=== PATIENT | male | born 1945 | race Two or more races ===

== ENCOUNTER 2021-08-28 09:38 | Inpatient (IN) | payer BC, MEDICAID, MEDICARE, OTHER ==
[~2021-08-28] VITALS: Ht 170.2 cm; Wt 94.5 kg
[~2021-08-28 09:38] MED LIST: ALLO100T PO; LISI40TA11; METF-370 PO; SIMV80TA73 PO; TRIA50CA40 PO
[2021-08-28 10:44] LABS: Basophils # (auto) 0.1 10 ^3/uL (0-0.2); Basophils % (auto) 0.4 % (0.0-2.0); Eosinophils # (auto) 0.3 10 ^3/uL (0-0.8); Eosinophils % (auto) 1.7 % (0.0-7.0); Hematocrit 34.9 % (41.0-53.0); Hemoglobin 11.3 g/dL (13.5-17.5); Lymphocytes # (auto) 0.9 10 ^3/uL (0.4-5.4); Lymphocytes % (auto) 6.1 % (10.0-50.0); Mean Corpuscular Hemoglobin 29.7 pg (28.0-32.0); Mean Corpuscular Hgb Conc. 32.4 g/dL (32.0-36.0); Mean Corpuscular Volume 91.7 fL (80.0-100.0); Monocytes # (auto) 0.4 10 ^3/uL (0-1.3); Monocytes % (auto) 2.7 % (0.0-12.0); Neutrophils # (auto) 13.4 10 ^3/uL (1.6-8.6); Neutrophils % (auto) 89.1 % (37.0-80.0); Nucleated Red Blood Cells % 0.1 %; Red Blood Cells 3.81 10^6/uL (4.5-5.90)
[2021-08-28 11:11] LABS: Albumin 1.7 g/dL (3.4-5.0); Calcium 9.1 mg/dL (8.5-10.1)
[2021-08-28 11:16] LABS: BUN/Creatinine Ratio 25.3; Bilirubin, Total 0.5 mg/dL (0.2-1.0); Total Protein 5.4 g/dL (6.4-8.2)
[2021-08-28] MEDS: SODIUM CHLORIDE 0.9% 500 ML IV ONE (11:31)
[2021-08-28] MEDS ORDERED: IOHEXOL 350 MG/ML 100ML IJ ONE ×2 (12:18→12:53)
[2021-08-28] MEDS ORDERED: ONDANSETRON HCL 4 MG/2 ML VIAL IV PRN (13:30)
[2021-08-28] MEDS ORDERED: ALBUTEROL SULF HFA 90MCG INH 200DOSE IN PRN (13:30)
[2021-08-28] MEDS ORDERED: DOCUSATE SOD 100 MG CAP PO PRN (13:30)
[2021-08-28] MEDS ORDERED: HYDROcodone-ACET 5/325MG TAB PO PRN (13:30)
[2021-08-28] MEDS ORDERED: ACETAMINOPHEN 500 MG TAB PO PRN ×2 (13:30)
[2021-08-28] MEDS ORDERED: MORPHINE SULFATE INJECTION 2 MG/ML SYRG IV PRN ×2 (13:30→14:30)
[2021-08-28] MEDS ORDERED: DEXTROSE (50%) 50ML SYRG IV PRN (13:45)
[2021-08-28] MEDS ORDERED: NITROGLYCERIN 0.4 MG SL TAB SL PRN (14:30)
[2021-08-28] MEDS: DexAMETHasone SOD PHOS 10MG/1ML VIAL INJ IV SCH (14:42)
[2021-08-28] MEDS: CHOLECALCIFEROL (VITD3) 2,000 UNIT CAP/TAB PO SCH (14:42)
[2021-08-28] MEDS: ASCORBIC ACID 1,000 MG TAB PO SCH (14:42)
[2021-08-28] MEDS: levoFLOXacin 500MG 100 ML IV SCH (14:43)
[2021-08-28] MEDS: ENOXAPARIN SOD 40 MG/0.4 ML SYRINGE SC SCH (14:43)
[2021-08-28 14:58] LABS: Urine Bacteria NONE SEEN /hpf (None Seen); Urine Blood Negative /uL (Negative); Urine Specific Gravity 1.025 (1.001-1.035); Urine WBC 2 /hpf (0 - 3)
[2021-08-28] MEDS: ACCU-CHEK COMFORT CURVE STRIP VI SCH ×2 (17:00→22:26)
[2021-08-28] MEDS: InsuLIN REG 1unit/0.01ml Soln (100units/ml) SC SCH ×2 (17:39→22:38)
[2021-08-28] MEDS ORDERED: BUDESONIDE (INHALATION) 180 MCG IH IN SCH (22:00)
[2021-08-29 01:04] VITALS: BP 113/55
[2021-08-29 05:00] VITALS: BP 131/69
[2021-08-29 05:51] LABS: Basophils # (auto) 0 10 ^3/uL (0-0.2); Basophils % (auto) 0.1 % (0.0-2.0); Eosinophils # (auto) 0 10 ^3/uL (0-0.8); Hematocrit 35.8 % (41.0-53.0); Lymphocytes # (auto) 0.5 10 ^3/uL (0.4-5.4); Lymphocytes % (auto) 5.3 % (10.0-50.0); Mean Corpuscular Hemoglobin 30.6 pg (28.0-32.0); Mean Corpuscular Hgb Conc. 33.5 g/dL (32.0-36.0); Mean Corpuscular Volume 91.4 fL (80.0-100.0); Monocytes # (auto) 0.3 10 ^3/uL (0-1.3); Monocytes % (auto) 2.7 % (0.0-12.0); Neutrophils # (auto) 9.2 10 ^3/uL (1.6-8.6); Neutrophils % (auto) 91.9 % (37.0-80.0); Nucleated Red Blood Cells % 0.1 %; Red Blood Cells 3.92 10^6/uL (4.5-5.90); Red Cell Distribution Width 16.2 % (11.8-14.3)
[2021-08-29] MEDS: InsuLIN REG 1unit/0.01ml Soln (100units/ml) SC SCH ×4 (06:09→21:47)
[2021-08-29] MEDS: ACCU-CHEK COMFORT CURVE STRIP VI SCH ×4 (06:09→21:43)
[2021-08-29 06:31] LABS: Albumin 1.8 g/dL (3.4-5.0); Calcium 9.1 mg/dL (8.5-10.1); Potassium 4.6 mmol/L (3.5-5.1)
[2021-08-29] MEDS: ALBUTEROL SULF 2.5 MG/0.5ML(0.5%) NEB SOLN NEB SCH ×3 (06:32→22:07)
[2021-08-29] MEDS: BUDESONIDE (INHALATION) 0.5 MG/2 ML NEB NEB SCH ×2 (06:32→22:07)
[2021-08-29 06:36] LABS: Bilirubin, Total 0.5 mg/dL (0.2-1.0); Total Protein 5.4 g/dL (6.4-8.2)
[2021-08-29 09:00] VITALS: BP 104/57
[2021-08-29] MEDS: CHOLECALCIFEROL (VITD3) 2,000 UNIT CAP/TAB PO SCH (09:27)
[2021-08-29] MEDS: levoFLOXacin 500MG 100 ML IV SCH (09:27)
[2021-08-29] MEDS: DexAMETHasone SOD PHOS 10MG/1ML VIAL INJ IV SCH (09:27)
[2021-08-29] MEDS: ASCORBIC ACID 1,000 MG TAB PO SCH (09:27)
[2021-08-29] MEDS: ALLOPURINOL 100 MG TAB PO SCH (09:28)
[2021-08-29] MEDS: ENOXAPARIN SOD 40 MG/0.4 ML SYRINGE SC SCH (09:28)
[2021-08-29] MEDS ORDERED: CHOLECALCIFEROL (VITD3) 2,000 UNIT CAP/TAB PO ONE (10:45)
[2021-08-29] MEDS ORDERED: DexAMETHasone 4 MG TAB PO ONE (10:45)
[2021-08-29] MEDS ORDERED: ZINC SULFATE 220mg CAP or TAB PO ONE (10:45)
[2021-08-29] MEDS ORDERED: ASCORBIC ACID 500 MG TAB PO ONE (10:45)
[2021-08-29] MEDS: SODIUM CHLORIDE 0.9% 1,000 ML IV SCH (12:15)
[2021-08-29 13:00] VITALS: BP 121/67
[2021-08-29 17:00] VITALS: BP 110/64
[2021-08-29] MEDS: ASCORBIC ACID 500 MG TAB PO SCH (21:52)
[2021-08-29 22:00] VITALS: BP 128/71
[2021-08-30] MEDS: SODIUM CHLORIDE 0.9% 1,000 ML IV SCH ×2 (04:19→21:06)
[2021-08-30 05:00] VITALS: BP 136/54
[2021-08-30] MEDS: ACCU-CHEK COMFORT CURVE STRIP VI SCH ×4 (06:33→22:15)
[2021-08-30] MEDS: InsuLIN REG 1unit/0.01ml Soln (100units/ml) SC SCH ×4 (06:36→22:18)
[2021-08-30 06:39] LABS: Basophils # (auto) 0 10 ^3/uL (0-0.2); Basophils % (auto) 0.2 % (0.0-2.0); Eosinophils # (auto) 0 10 ^3/uL (0-0.8); Eosinophils % (auto) 0.1 % (0.0-7.0); Hematocrit 36.1 % (41.0-53.0); Hemoglobin 11.9 g/dL (13.5-17.5); Lymphocytes # (auto) 0.6 10 ^3/uL (0.4-5.4); Lymphocytes % (auto) 6.3 % (10.0-50.0); Mean Corpuscular Hemoglobin 30.6 pg (28.0-32.0); Mean Corpuscular Hgb Conc. 32.8 g/dL (32.0-36.0); Mean Corpuscular Volume 93.3 fL (80.0-100.0); Monocytes # (auto) 0.5 10 ^3/uL (0-1.3); Monocytes % (auto) 4.7 % (0.0-12.0); Neutrophils # (auto) 8.7 10 ^3/uL (1.6-8.6); Neutrophils % (auto) 88.7 % (37.0-80.0); Red Blood Cells 3.87 10^6/uL (4.5-5.90); Red Cell Distribution Width 16.4 % (11.8-14.3); White Blood Cell 9.8 10^3/uL (4.4-10.8)
[2021-08-30 07:05] LABS: BUN/Creatinine Ratio 29.8; Calcium 8.9 mg/dL (8.5-10.1); Magnesium 1.9 mg/dL (1.6-2.6)
[2021-08-30] MEDS: ALBUTEROL SULF 2.5 MG/0.5ML(0.5%) NEB SOLN NEB SCH ×2 (07:11→19:20)
[2021-08-30] MEDS: BUDESONIDE (INHALATION) 0.5 MG/2 ML NEB NEB SCH ×2 (07:12→19:20)
[2021-08-30 09:00] VITALS: BP 122/62
[2021-08-30] MEDS: ALLOPURINOL 100 MG TAB PO SCH (09:37)
[2021-08-30] MEDS: ASCORBIC ACID 500 MG TAB PO SCH ×2 (09:37→22:15)
[2021-08-30] MEDS: CHOLECALCIFEROL (VITD3) 2,000 UNIT CAP/TAB PO SCH (09:38)
[2021-08-30] MEDS: DexAMETHasone 4 MG TAB PO SCH (09:38)
[2021-08-30] MEDS: ENOXAPARIN SOD 40 MG/0.4 ML SYRINGE SC SCH (09:39)
[2021-08-30] MEDS: levoFLOXacin 500MG 100 ML IV SCH (09:39)
[2021-08-30] MEDS: ZINC SULFATE 220mg CAP or TAB PO SCH (09:39)
[2021-08-30 12:00] VITALS: BP 116/67
[2021-08-30 16:00] VITALS: BP 126/68
[2021-08-30 22:00] VITALS: BP 145/69
[2021-08-31 05:00] VITALS: BP 129/68
[2021-08-31] MEDS: ACCU-CHEK COMFORT CURVE STRIP VI SCH ×4 (06:34→20:42)
[2021-08-31] MEDS: InsuLIN REG 1unit/0.01ml Soln (100units/ml) SC SCH ×4 (06:37→20:36)
[2021-08-31 07:12] LABS: Basophils # (auto) 0 10 ^3/uL (0-0.2); Basophils % (auto) 0.1 % (0.0-2.0); Eosinophils # (auto) 0 10 ^3/uL (0-0.8); Eosinophils % (auto) 0.2 % (0.0-7.0); Hematocrit 31.2 % (41.0-53.0); Hemoglobin 10.8 g/dL (13.5-17.5); Lymphocytes # (auto) 0.6 10 ^3/uL (0.4-5.4); Lymphocytes % (auto) 7.6 % (10.0-50.0); Mean Corpuscular Hemoglobin 30.9 pg (28.0-32.0); Mean Corpuscular Hgb Conc. 34.5 g/dL (32.0-36.0); Mean Corpuscular Volume 89.5 fL (80.0-100.0); Monocytes # (auto) 0.4 10 ^3/uL (0-1.3); Neutrophils # (auto) 7.4 10 ^3/uL (1.6-8.6); Neutrophils % (auto) 87.1 % (37.0-80.0); Red Blood Cells 3.48 10^6/uL (4.5-5.90); Red Cell Distribution Width 15.7 % (11.8-14.3); White Blood Cell 8.5 10^3/uL (4.4-10.8)
[2021-08-31 07:26] LABS: Calcium 8.8 mg/dL (8.5-10.1); Magnesium 1.7 mg/dL (1.6-2.6); Potassium 3.8 mmol/L (3.5-5.1)
[2021-08-31 07:28] LABS: BUN/Creatinine Ratio 25.9
[2021-08-31 09:00] VITALS: BP 137/61
[2021-08-31] MEDS: levoFLOXacin 500MG 100 ML IV SCH (09:47)
[2021-08-31] MEDS: ENOXAPARIN SOD 40 MG/0.4 ML SYRINGE SC SCH (09:47)
[2021-08-31] MEDS: CHOLECALCIFEROL (VITD3) 2,000 UNIT CAP/TAB PO SCH (09:48)
[2021-08-31] MEDS: ASCORBIC ACID 500 MG TAB PO SCH ×2 (09:48→20:44)
[2021-08-31] MEDS: ALLOPURINOL 100 MG TAB PO SCH (09:48)
[2021-08-31] MEDS: ZINC SULFATE 220mg CAP or TAB PO SCH (09:48)
[2021-08-31] MEDS: DexAMETHasone 4 MG TAB PO SCH (09:48)
[2021-08-31] MEDS: SODIUM CHLORIDE 0.9% 1,000 ML IV SCH (12:57)
[2021-08-31 13:00] VITALS: BP 123/70
[2021-08-31] MEDS: ALBUTEROL SULF 2.5 MG/0.5ML(0.5%) NEB SOLN NEB SCH ×2 (13:13→22:36)
[2021-08-31] MEDS: BUDESONIDE (INHALATION) 0.5 MG/2 ML NEB NEB SCH ×2 (13:13→22:36)
[2021-08-31 16:34] VITALS: BP 131/69
[2021-08-31 22:00] VITALS: BP 141/66
[2021-09-01 00:36] VITALS: BP 141/66
[2021-09-01 05:00] VITALS: BP 135/63
[2021-09-01] MEDS: InsuLIN REG 1unit/0.01ml Soln (100units/ml) SC SCH ×4 (05:21→21:48)
[2021-09-01] MEDS: ACCU-CHEK COMFORT CURVE STRIP VI SCH ×4 (05:27→22:08)
[2021-09-01] MEDS: SODIUM CHLORIDE 0.9% 1,000 ML IV SCH ×2 (05:40→22:12)
[2021-09-01] MEDS: ALBUTEROL SULF 2.5 MG/0.5ML(0.5%) NEB SOLN NEB SCH ×3 (06:54→19:21)
[2021-09-01] MEDS: BUDESONIDE (INHALATION) 0.5 MG/2 ML NEB NEB SCH ×2 (06:54→19:21)
[2021-09-01 09:00] VITALS: BP 122/60
[2021-09-01] MEDS ORDERED: LACTULOSE 20Gm/30ML SOLN PO ONE (09:15)
[2021-09-01] MEDS: DexAMETHasone 4 MG TAB PO SCH (10:05)
[2021-09-01] MEDS: DOCUSATE SOD 100 MG CAP PO SCH ×2 (10:05→21:44)
[2021-09-01] MEDS: ASCORBIC ACID 500 MG TAB PO SCH ×2 (10:06→21:44)
[2021-09-01] MEDS: ALLOPURINOL 100 MG TAB PO SCH (10:06)
[2021-09-01] MEDS: CHOLECALCIFEROL (VITD3) 2,000 UNIT CAP/TAB PO SCH (10:06)
[2021-09-01] MEDS: ZINC SULFATE 220mg CAP or TAB PO SCH (10:06)
[2021-09-01] MEDS: levoFLOXacin 500MG 100 ML IV SCH (10:07)
[2021-09-01] MEDS: ENOXAPARIN SOD 40 MG/0.4 ML SYRINGE SC SCH (10:07)
[2021-09-01 13:00] VITALS: BP 120/54
[2021-09-01 17:00] VITALS: BP 124/72
[2021-09-01] MEDS ORDERED: FLEET ENEMA(ADULT) 135 ML PR ONE (19:15)
[2021-09-01 22:00] VITALS: BP 117/73
[2021-09-02 05:00] VITALS: BP 133/68
[2021-09-02] MEDS: ALBUTEROL SULF 2.5 MG/0.5ML(0.5%) NEB SOLN NEB SCH ×3 (06:21→23:19)
[2021-09-02] MEDS: BUDESONIDE (INHALATION) 0.5 MG/2 ML NEB NEB SCH ×2 (06:21→23:19)
[2021-09-02] MEDS: InsuLIN REG 1unit/0.01ml Soln (100units/ml) SC SCH ×4 (06:25→22:36)
[2021-09-02] MEDS: ACCU-CHEK COMFORT CURVE STRIP VI SCH ×4 (06:25→22:37)
[2021-09-02 09:00] VITALS: BP 111/47
[2021-09-02] MEDS: ENOXAPARIN SOD 40 MG/0.4 ML SYRINGE SC SCH (09:46)
[2021-09-02] MEDS: ZINC SULFATE 220mg CAP or TAB PO SCH (09:47)
[2021-09-02] MEDS: CHOLECALCIFEROL (VITD3) 2,000 UNIT CAP/TAB PO SCH (09:47)
[2021-09-02] MEDS: DexAMETHasone 4 MG TAB PO SCH (09:47)
[2021-09-02] MEDS: levoFLOXacin 500MG 100 ML IV SCH (09:47)
[2021-09-02] MEDS: ASCORBIC ACID 500 MG TAB PO SCH ×2 (09:47→22:36)
[2021-09-02] MEDS: DOCUSATE SOD 100 MG CAP PO SCH ×2 (09:48→22:36)
[2021-09-02] MEDS: ALLOPURINOL 100 MG TAB PO SCH (09:51)
[2021-09-02] MEDS: SODIUM CHLORIDE 0.9% 1,000 ML IV SCH (15:00)
[2021-09-02 17:00] VITALS: BP 132/74
[2021-09-02 22:00] VITALS: BP 135/75
[2021-09-03 05:00] VITALS: BP 117/59
[2021-09-03 05:56] LABS: Basophils # (auto) 0 10 ^3/uL (0-0.2); Basophils % (auto) 0.1 % (0.0-2.0); Eosinophils # (auto) 0 10 ^3/uL (0-0.8); Eosinophils % (auto) 0.4 % (0.0-7.0); Hematocrit 32.8 % (41.0-53.0); Hemoglobin 10.8 g/dL (13.5-17.5); Lymphocytes # (auto) 0.8 10 ^3/uL (0.4-5.4); Lymphocytes % (auto) 6.9 % (10.0-50.0); Mean Corpuscular Hemoglobin 29.7 pg (28.0-32.0); Mean Corpuscular Hgb Conc. 32.9 g/dL (32.0-36.0); Mean Corpuscular Volume 90.4 fL (80.0-100.0); Monocytes # (auto) 0.3 10 ^3/uL (0-1.3); Monocytes % (auto) 2.4 % (0.0-12.0); Neutrophils # (auto) 10.7 10 ^3/uL (1.6-8.6); Neutrophils % (auto) 90.2 % (37.0-80.0); Nucleated Red Blood Cells % 0.1 %; Red Blood Cells 3.63 10^6/uL (4.5-5.90); Red Cell Distribution Width 16.3 % (11.8-14.3); White Blood Cell 11.9 10^3/uL (4.4-10.8)
[2021-09-03] MEDS: BUDESONIDE (INHALATION) 0.5 MG/2 ML NEB NEB SCH ×2 (06:19→21:21)
[2021-09-03] MEDS: ALBUTEROL SULF 2.5 MG/0.5ML(0.5%) NEB SOLN NEB SCH ×2 (06:19→21:21)
[2021-09-03] MEDS: InsuLIN REG 1unit/0.01ml Soln (100units/ml) SC SCH ×4 (06:34→22:21)
[2021-09-03 06:35] LABS: Potassium 3.7 mmol/L (3.5-5.1)
[2021-09-03] MEDS: ACCU-CHEK COMFORT CURVE STRIP VI SCH ×4 (06:35→22:31)
[2021-09-03 06:41] LABS: BUN/Creatinine Ratio 19.1; Calcium 8.1 mg/dL (8.5-10.1); Magnesium 1.7 mg/dL (1.6-2.6)
[2021-09-03] MEDS: SODIUM CHLORIDE 0.9% 1,000 ML IV SCH (07:40)
[2021-09-03 09:00] VITALS: BP 133/70
[2021-09-03] MEDS: levoFLOXacin 500MG 100 ML IV SCH (10:04)
[2021-09-03] MEDS: ASCORBIC ACID 500 MG TAB PO SCH ×2 (10:05→22:31)
[2021-09-03] MEDS: CHOLECALCIFEROL (VITD3) 2,000 UNIT CAP/TAB PO SCH (10:05)
[2021-09-03] MEDS: ZINC SULFATE 220mg CAP or TAB PO SCH (10:05)
[2021-09-03] MEDS: DexAMETHasone 4 MG TAB PO SCH (10:05)
[2021-09-03] MEDS: ALLOPURINOL 100 MG TAB PO SCH (10:06)
[2021-09-03] MEDS: ENOXAPARIN SOD 40 MG/0.4 ML SYRINGE SC SCH (10:07)
[2021-09-03 13:00] VITALS: BP 129/72
[2021-09-03 17:00] VITALS: BP 139/78
[2021-09-03 19:52] VITALS: BP 139/78
[2021-09-03 22:00] VITALS: BP 124/71
[2021-09-04] MEDS: SODIUM CHLORIDE 0.9% 1,000 ML IV SCH (00:20)
[2021-09-04 05:00] VITALS: BP 123/70
[2021-09-04] MEDS: ALBUTEROL SULF 2.5 MG/0.5ML(0.5%) NEB SOLN NEB SCH (06:23)
[2021-09-04] MEDS: BUDESONIDE (INHALATION) 0.5 MG/2 ML NEB NEB SCH (06:24)
[2021-09-04] MEDS: InsuLIN REG 1unit/0.01ml Soln (100units/ml) SC SCH ×2 (06:43→11:49)
[2021-09-04] MEDS: ACCU-CHEK COMFORT CURVE STRIP VI SCH ×2 (06:43→11:49)
[2021-09-04 09:00] VITALS: BP 146/71
[2021-09-04] MEDS: levoFLOXacin 500MG 100 ML IV SCH (09:17)
[2021-09-04] MEDS: ENOXAPARIN SOD 40 MG/0.4 ML SYRINGE SC SCH (09:17)
[2021-09-04] MEDS: ASCORBIC ACID 500 MG TAB PO SCH (09:18)
[2021-09-04] MEDS: ALLOPURINOL 100 MG TAB PO SCH (09:18)
[2021-09-04] MEDS: ZINC SULFATE 220mg CAP or TAB PO SCH (09:18)
[2021-09-04] MEDS: CHOLECALCIFEROL (VITD3) 2,000 UNIT CAP/TAB PO SCH (09:18)
[2021-09-04] MEDS: DexAMETHasone 4 MG TAB PO SCH (09:19)
[2021-09-04 12:35] VITALS: BP 132/66
== END 2021-09-04 14:00 | disposition home health service (06) | DRG 177 ==
LOC: EDBD 09:38 → EDUNIT# 09:38 → ER 09:38 → TELE 14:29 → TELE-WESTW 22:05
PROVIDERS: ADMIT Nurse Practitioner Acute Care; ATTEND Internal Medicine Geriatric Medicine
DX: U07.1 COVID-19 (principal); J12.82 Pneumonia due to coronavirus disease 2019; J96.01 Acute respiratory failure with hypoxia; N17.9 Acute kidney failure, unspecified; E86.0 Dehydration; R55 Syncope and collapse; E66.9 Obesity, unspecified; D89.839 Cytokine release syndrome, grade unspecified; E88.09 Other disorders of plasma-protein metabolism, not elsewhere classified; N18.32 Chronic kidney disease, stage 3b; E11.22 Type 2 diabetes mellitus with diabetic chronic kidney disease; E78.5 Hyperlipidemia, unspecified; I12.9 Hypertensive chronic kidney disease with stage 1 through stage 4 chronic kidney disease, or unspecified chronic kidney disease; K59.00 Constipation, unspecified; Z20.822 Contact with and (suspected) exposure to COVID-19; M10.9 Gout, unspecified; Z88.0 Allergy status to penicillin; Z68.34 Body mass index [BMI] 34.0-34.9, adult; Z79.84 Long term (current) use of oral hypoglycemic drugs; Z79.899 Other long term (current) drug therapy
CPT/HCPCS: 36415; 70450; 71045; 71275; 74018; 80048; 80053; 81001; 82962; 83605; 83735; 83880; 84484; 85025; 87040; 87081; 87086; 87426; 93005; 93306; 93886; 94640; 96361; 96365; 96372; 96375; 97110; 97116; 97163; 97530; 99291; G0378; J1100; J1815; J1956

== ENCOUNTER 2021-09-21 18:37 | Inpatient (IN) | payer OTHER ==
[~2021-09-21] VITALS: Ht 172.7 cm; Wt 83.0 kg
[2021-09-21] MEDS ORDERED: ONDANSETRON HCL 4 MG/2 ML VIAL IV ONE (19:30)
[2021-09-21] MEDS ORDERED: FAMOTIDINE (10MG/ML) 2ML VL IV ONE (19:30)
[2021-09-21] MEDS ORDERED: SODIUM CHLORIDE 0.9% 1,000 ML IV ONE (19:30)
[2021-09-21] MEDS ORDERED: D5W/SOD CHL 0.45%/KCL 20MEQ 1,000 ML IV ONE (19:30)
[2021-09-21 19:57] LABS: Basophils # (auto) 0 10 ^3/uL (0-0.2); Basophils % (auto) 0.6 % (0.0-2.0); Eosinophils # (auto) 0 10 ^3/uL (0-0.8); Eosinophils % (auto) 0.5 % (0.0-7.0); Hemoglobin 11.5 g/dL (13.5-17.5); Lymphocytes # (auto) 1.6 10 ^3/uL (0.4-5.4); Lymphocytes % (auto) 22.3 % (10.0-50.0); Mean Corpuscular Hemoglobin 29.4 pg (28.0-32.0); Mean Corpuscular Hgb Conc. 32.8 g/dL (32.0-36.0); Mean Corpuscular Volume 89.5 fL (80.0-100.0); Monocytes # (auto) 0.5 10 ^3/uL (0-1.3); Monocytes % (auto) 6.3 % (0.0-12.0); Neutrophils # (auto) 5.1 10 ^3/uL (1.6-8.6); Neutrophils % (auto) 70.3 % (37.0-80.0); Nucleated Red Blood Cells % 0.1 %; Red Blood Cells 3.91 10^6/uL (4.5-5.90); Red Cell Distribution Width 15.4 % (11.8-14.3); White Blood Cell 7.2 10^3/uL (4.4-10.8)
[2021-09-21 20:14] LABS: Albumin 2.3 g/dL (3.4-5.0); Calcium 8.6 mg/dL (8.5-10.1); Potassium 4.1 mmol/L (3.5-5.1)
[2021-09-21 20:17] LABS: BUN/Creatinine Ratio 10.2; Bilirubin, Total 0.7 mg/dL (0.2-1.0); Total Protein 6.5 g/dL (6.4-8.2)
[2021-09-22] MEDS ORDERED: NITROGLYCERIN 0.4 MG SL TAB SL PRN (06:30)
[2021-09-22] MEDS ORDERED: ONDANSETRON HCL 4 MG/2 ML VIAL IV PRN (06:30)
[2021-09-22] MEDS ORDERED: ACETAMINOPHEN 325 MG TAB PO PRN (06:30)
[2021-09-22] MEDS ORDERED: ALBUMIN 25% 100 ML IV ONE (06:30)
[2021-09-22] MEDS ORDERED: HYDROcodone-ACET 5/325MG TAB PO PRN (06:30)
[2021-09-22] MEDS ORDERED: MORPHINE SULFATE INJECTION 2 MG/ML SYRG IV PRN (06:30)
[2021-09-22] MEDS ORDERED: DOCUSATE SOD 100 MG CAP PO PRN (06:30)
[2021-09-22] MEDS ORDERED: DEXTROSE (50%) 50ML SYRG IV PRN (06:30)
[2021-09-22] MEDS ORDERED: MORPHINE SULFATE 4 MG/ML SYR/VIAL IV PRN (06:30)
[2021-09-22 06:47] LABS: Urine WBC None Seen /hpf (0 - 3)
[2021-09-22 06:52] LABS: Basophils # (auto) 0 10 ^3/uL (0-0.2); Basophils % (auto) 0.7 % (0.0-2.0); Eosinophils # (auto) 0.1 10 ^3/uL (0-0.8); Eosinophils % (auto) 0.9 % (0.0-7.0); Hematocrit 26.4 % (41.0-53.0); Hemoglobin 9.1 g/dL (13.5-17.5); Lymphocytes # (auto) 1.8 10 ^3/uL (0.4-5.4); Lymphocytes % (auto) 30.5 % (10.0-50.0); Mean Corpuscular Hemoglobin 30.8 pg (28.0-32.0); Mean Corpuscular Hgb Conc. 34.6 g/dL (32.0-36.0); Monocytes # (auto) 0.6 10 ^3/uL (0-1.3); Monocytes % (auto) 9.7 % (0.0-12.0); Neutrophils # (auto) 3.3 10 ^3/uL (1.6-8.6); Neutrophils % (auto) 58.2 % (37.0-80.0); Nucleated Red Blood Cells % 0.2 %; Red Blood Cells 2.97 10^6/uL (4.5-5.90); Red Cell Distribution Width 15.8 % (11.8-14.3); White Blood Cell 5.7 10^3/uL (4.4-10.8)
[2021-09-22] MEDS: InsuLIN REG 1unit/0.01ml Soln (100units/ml) SC SCH ×4 (07:00→21:55)
[2021-09-22] MEDS: ACCU-CHEK COMFORT CURVE STRIP VI SCH ×4 (07:00→21:55)
[2021-09-22 07:02] LABS: Albumin 1.6 g/dL (3.4-5.0); Calcium 7.4 mg/dL (8.5-10.1)
[2021-09-22 07:06] LABS: BUN/Creatinine Ratio 12.8
[2021-09-22 07:07] LABS: Bilirubin, Total 0.5 mg/dL (0.2-1.0); Total Protein 4.2 g/dL (6.4-8.2)
[2021-09-22 07:13] LABS: Urine Bacteria FEW /hpf (None Seen); Urine Blood Negative /uL (Negative); Urine Hyaline Cast FEW /lpf (0 - 2); Urine Specific Gravity 1.015 (1.001-1.035)
[2021-09-22] MEDS: ASPirin 81 mg TAB PO SCH (08:36)
[2021-09-22] MEDS: ASCORBIC ACID 500 MG TAB PO SCH ×2 (08:36→21:46)
[2021-09-22] MEDS: MULTIPLE VITAMIN TAB PO SCH (08:36)
[2021-09-22] MEDS: ZINC SULFATE 220mg CAP or TAB PO SCH (08:36)
[2021-09-22] MEDS: HEPARIN SODIUM (PORCINE) 5000 UNITS/ML 1ML VIAL SC SCH ×2 (08:36→21:47)
[2021-09-22] MEDS: SODIUM CHLORIDE 0.9% 1,000 ML IV SCH ×2 (10:00→18:02)
[2021-09-22] MEDS ORDERED: FAMOTIDINE (10MG/ML) 2ML VL IV SCH (10:00)
[2021-09-22] MEDS: PANTOPRAZOLE 40 MG TAB PO SCH ×2 (10:15→21:46)
[2021-09-22] MEDS: SUCRALFATE 1 GM/10 ML ORAL SUSP PO SCH ×3 (11:47→21:55)
[2021-09-23 05:19] VITALS: BP 117/60
[2021-09-23] MEDS: SODIUM CHLORIDE 0.9% 1,000 ML IV SCH ×3 (06:02→11:42)
[2021-09-23] MEDS: SUCRALFATE 1 GM/10 ML ORAL SUSP PO SCH ×4 (06:14→21:29)
[2021-09-23] MEDS: ACCU-CHEK COMFORT CURVE STRIP VI SCH ×4 (06:15→21:29)
[2021-09-23] MEDS: InsuLIN REG 1unit/0.01ml Soln (100units/ml) SC SCH ×4 (06:23→21:29)
[2021-09-23 07:37] LABS: INR 1.05 (0.9-1.15); Potassium 3.7 mmol/L (3.5-5.1)
[2021-09-23 07:45] LABS: Albumin 1.8 g/dL (3.4-5.0); BUN/Creatinine Ratio 11.9; Bilirubin, Total 0.8 mg/dL (0.2-1.0); Calcium 7.4 mg/dL (8.5-10.1); Magnesium 1.7 mg/dL (1.6-2.6); Total Protein 4.1 g/dL (6.4-8.2)
[2021-09-23 08:30] VITALS: BP 128/56
[2021-09-23 08:33] LABS: Hematocrit 24.9 % (41.0-53.0); Hemoglobin 8.3 g/dL (13.5-17.5)
[2021-09-23 08:35] LABS: Mean Corpuscular Hemoglobin 30.2 pg (28.0-32.0); Mean Corpuscular Hgb Conc. 33.5 g/dL (32.0-36.0); Mean Corpuscular Volume 90.3 fL (80.0-100.0); Red Blood Cells 2.75 10^6/uL (4.5-5.90); Red Cell Distribution Width 15.8 % (11.8-14.3)
[2021-09-23 08:43] LABS: Band Neutrophils % (manual) 0; Basophils % (manual) 0 (0.0-2.0); Blast Cells 0; Metamyelocytes % 0; Myelocytes % 0; Promyelocytes % 0; Reactive Lymphocytes 0
[2021-09-23] MEDS: ASPirin 81 mg TAB PO SCH (10:06)
[2021-09-23] MEDS: PANTOPRAZOLE 40 MG TAB PO SCH ×2 (10:06→21:29)
[2021-09-23] MEDS: MULTIPLE VITAMIN TAB PO SCH (10:06)
[2021-09-23] MEDS: ZINC SULFATE 220mg CAP or TAB PO SCH (10:06)
[2021-09-23] MEDS: ASCORBIC ACID 500 MG TAB PO SCH ×2 (10:06→21:31)
[2021-09-23] MEDS: HEPARIN SODIUM (PORCINE) 5000 UNITS/ML 1ML VIAL SC SCH ×2 (10:22→21:38)
[2021-09-23] MEDS ORDERED: ALLOPURINOL 100 MG TAB PO ONE (11:15)
[2021-09-23 12:41] LABS: Eosinophils % (manual) 2 (0-7); Lymphocytes % (manual) 18 (10.0-50.0); Monocytes % (manual) 4 (0-12)
[2021-09-23 17:00] VITALS: BP 100/44
[2021-09-23 22:00] VITALS: BP_SYST 127; BP_SYST 133; BP_DIAS 62; BP_DIAS 69
[2021-09-23] MEDS: MUPIROCIN 2% OINT 15gm or 22gm EACHNOSTRI SCH (22:00)
[2021-09-24] MEDS: SODIUM CHLORIDE 0.9% 1,000 ML IV SCH (04:57)
[2021-09-24 05:00] VITALS: BP 135/62
[2021-09-24] MEDS: ACCU-CHEK COMFORT CURVE STRIP VI SCH ×4 (07:00→22:23)
[2021-09-24] MEDS: InsuLIN REG 1unit/0.01ml Soln (100units/ml) SC SCH ×4 (07:00→22:24)
[2021-09-24] MEDS: SUCRALFATE 1 GM/10 ML ORAL SUSP PO SCH ×4 (07:00→22:24)
[2021-09-24 07:04] LABS: Basophils # (auto) 0 10 ^3/uL (0-0.2); Basophils % (auto) 0.5 % (0.0-2.0); Eosinophils # (auto) 0.1 10 ^3/uL (0-0.8); Eosinophils % (auto) 1.3 % (0.0-7.0); Hematocrit 25.3 % (41.0-53.0); Hemoglobin 8.7 g/dL (13.5-17.5); Lymphocytes # (auto) 1.5 10 ^3/uL (0.4-5.4); Mean Corpuscular Hemoglobin 30.8 pg (28.0-32.0); Mean Corpuscular Hgb Conc. 34.2 g/dL (32.0-36.0); Mean Corpuscular Volume 89.9 fL (80.0-100.0); Monocytes # (auto) 0.4 10 ^3/uL (0-1.3); Monocytes % (auto) 8.7 % (0.0-12.0); Neutrophils # (auto) 2.9 10 ^3/uL (1.6-8.6); Neutrophils % (auto) 58.5 % (37.0-80.0); Nucleated Red Blood Cells % 0.1 %; Red Blood Cells 2.82 10^6/uL (4.5-5.90); Red Cell Distribution Width 15.8 % (11.8-14.3); White Blood Cell 4.9 10^3/uL (4.4-10.8)
[2021-09-24 07:28] LABS: Calcium 7.5 mg/dL (8.5-10.1); Magnesium 1.4 mg/dL (1.6-2.6); Potassium 3.4 mmol/L (3.5-5.1)
[2021-09-24 07:32] LABS: BUN/Creatinine Ratio 10.6
[2021-09-24 09:00] VITALS: BP 136/61
[2021-09-24] MEDS: ALLOPURINOL 100 MG TAB PO SCH (10:00)
[2021-09-24] MEDS: ASCORBIC ACID 500 MG TAB PO SCH ×2 (10:00→22:24)
[2021-09-24] MEDS: PANTOPRAZOLE 40 MG TAB PO SCH ×2 (10:00→22:24)
[2021-09-24] MEDS: ASPirin 81 mg TAB PO SCH (10:00)
[2021-09-24] MEDS: MULTIPLE VITAMIN TAB PO SCH (10:00)
[2021-09-24] MEDS: ZINC SULFATE 220mg CAP or TAB PO SCH (10:00)
[2021-09-24] MEDS: MUPIROCIN 2% OINT 15gm or 22gm EACHNOSTRI SCH ×2 (10:06→22:24)
[2021-09-24] MEDS: HEPARIN SODIUM (PORCINE) 5000 UNITS/ML 1ML VIAL SC SCH ×2 (10:43→22:22)
[2021-09-24] MEDS ORDERED: LIDOCAINE VISCOUS 2% 15ML UD ONE (13:13)
[2021-09-24] MEDS ORDERED: LIDOCAINE VISCOUS 2% 15ML UD MT ONE (13:23)
[2021-09-24] MEDS ORDERED: fentaNYL CITRATE 100 MCG/2 ML VL ONE (13:26)
[2021-09-24] MEDS ORDERED: MIDAZOLAM HCL 2MG/2ML 2ml VIAL (1mg/ml) ONE (13:27)
[2021-09-24] MEDS ORDERED: MORPHINE SULFATE 4 MG/ML SYR/VIAL IV PRN (13:45)
[2021-09-24] MEDS ORDERED: ePHEDrine SULFATE 50 MG/ML AMP IV PRN (13:45)
[2021-09-24] MEDS ORDERED: ONDANSETRON HCL 4 MG/2 ML VIAL IV PRN (13:45)
[2021-09-24] MEDS ORDERED: LABETALOL HCL 5 MG/ML 4ML SYRINGE IV PRN (13:45)
[2021-09-24] MEDS ORDERED: hydrALAZINE HCL 20 MG/ML VL IV PRN (13:45)
[2021-09-24] MEDS ORDERED: MIDAZOLAM HCL 2MG/2ML 2ml VIAL (1mg/ml) IV PRN (13:45)
[2021-09-24] MEDS ORDERED: ACCU-CHEK COMFORT CURVE STRIP VI ONE (13:45)
[2021-09-24] MEDS ORDERED: PROPOFOL 10 MG/ML 20 ML IV ONE (13:46)
[2021-09-24] MEDS ORDERED: DexAMETHasone SOD PHOS 10MG/1ML VIAL INJ ONE (13:46)
[2021-09-24 22:00] VITALS: BP 138/60
[2021-09-25 06:00] VITALS: BP 146/67
[2021-09-25] MEDS: InsuLIN REG 1unit/0.01ml Soln (100units/ml) SC SCH ×3 (06:29→17:00)
[2021-09-25] MEDS: SUCRALFATE 1 GM/10 ML ORAL SUSP PO SCH ×3 (06:30→17:00)
[2021-09-25] MEDS: ACCU-CHEK COMFORT CURVE STRIP VI SCH ×3 (06:30→17:00)
[2021-09-25] MEDS: SODIUM CHLORIDE 0.9% 1,000 ML IV SCH (06:30)
[2021-09-25 07:06] LABS: Potassium 3.8 mmol/L (3.5-5.1)
[2021-09-25 07:12] LABS: BUN/Creatinine Ratio 14.4; Calcium 7.6 mg/dL (8.5-10.1)
[2021-09-25 08:48] VITALS: BP 142/65
[2021-09-25] MEDS: MUPIROCIN 2% OINT 15gm or 22gm EACHNOSTRI SCH (10:02)
[2021-09-25] MEDS: ALLOPURINOL 100 MG TAB PO SCH (10:03)
[2021-09-25] MEDS: ASPirin 81 mg TAB PO SCH (10:03)
[2021-09-25] MEDS: ZINC SULFATE 220mg CAP or TAB PO SCH (10:03)
[2021-09-25] MEDS: ASCORBIC ACID 500 MG TAB PO SCH (10:03)
[2021-09-25] MEDS: MULTIPLE VITAMIN TAB PO SCH (10:03)
[2021-09-25] MEDS: PANTOPRAZOLE 40 MG TAB PO SCH (10:03)
[2021-09-25] MEDS: HEPARIN SODIUM (PORCINE) 5000 UNITS/ML 1ML VIAL SC SCH (10:04)
[2021-09-25 13:00] VITALS: BP 129/55
== END 2021-09-25 16:25 | disposition home or self-care (01) | DRG 391 ==
LOC: ER 18:37 → TELE 09-22 06:20 → TELE-WESTW 09-22 23:00 → WEST WING 09-23 14:08
PROVIDERS: ADMIT Nurse Practitioner Family; ATTEND Internal Medicine Geriatric Medicine
PROC: 0DB68ZX Excision of Stomach, Via Natural or Artificial Opening Endoscopic, Diagnostic (ICD-10-PCS; principal; 2021-09-24 13:24)
DX: K29.00 Acute gastritis without bleeding (principal); N17.0 Acute kidney failure with tubular necrosis; E44.0 Moderate protein-calorie malnutrition; K29.80 Duodenitis without bleeding; K20.90 Esophagitis, unspecified without bleeding; E88.09 Other disorders of plasma-protein metabolism, not elsewhere classified; K76.89 Other specified diseases of liver; E11.65 Type 2 diabetes mellitus with hyperglycemia; M10.9 Gout, unspecified; K57.90 Diverticulosis of intestine, part unspecified, without perforation or abscess without bleeding; E11.22 Type 2 diabetes mellitus with diabetic chronic kidney disease; I12.9 Hypertensive chronic kidney disease with stage 1 through stage 4 chronic kidney disease, or unspecified chronic kidney disease; N18.9 Chronic kidney disease, unspecified; Z79.899 Other long term (current) drug therapy; Z20.822 Contact with and (suspected) exposure to COVID-19; Z88.0 Allergy status to penicillin; Z90.49 Acquired absence of other specified parts of digestive tract; Z86.16 Personal history of COVID-19; Z79.84 Long term (current) use of oral hypoglycemic drugs
CPT/HCPCS: 36415; 74176; 76700; 80048; 80053; 80061; 81001; 82962; 83036; 83605; 83690; 83735; 84484; 85007; 85025; 85027; 85610; 87426; 93005; 96361; 96374; 96375; G0378; J1100; J1815; J2250; J2405; J2704; J3490; P9047